=== PATIENT | female | born 1955 | race Caucasian/White ===

== ENCOUNTER 2017-07-16 15:35 | Emergency (ER) | payer OTHER, SELFPAY ==
[2017-07-16 15:36] VITALS: BP 125/76; PULSE 84; RESP 16; TEMP 36.4; O2SAT 100; BMI 31.7
--- NOTE | 2017-07-16 15:52 | EKG12_ITS ---
Test Reason : ABD PAIN Blood Pressure : / mmHG Vent. Rate : 062 BPM Atrial Rate : 062 BPM P-R Int : 160 ms QRS Dur : 092 ms QT Int : 418 ms P-R-T Axes : 050 022 049 degrees QTc Int : 424 ms Normal sinus rhythm Normal ECG Confirmed by JEREMY VOGT MD ([id number]), video effects editor ADRIAN MACIEL ([id number] on 07/18/2017 3:20:39 PM Referred By: ESTER Confirmed By:JEREMY VOGT MD
--- NOTE | 2017-07-16 15:54 | ED.VISSUMM ---
- ER Visit Summary Date of Service: 07/16/17 Chief Complaint: Abdominal pain History of Present Illness: The patient is a 61 F presenting with abdominal pain. Patient states that [facility] [employer] this afternoon. She began having pain in her abdomen. She has a history of gallstones diagnosed in December. She states the pain radiated to her chest. Denies shortness of breath. She had nausea with no vomiting. Denies diarrhea or constipation. Denies urinary complaints. She states while pulling up to the hospital she burped and her symptoms completely resolved. She has no PE/DVT risk factors. She has a history of GERD and hypertension. She is not a smoker. No other coronary disease risk factors. Physical Examination: Vitals are stable. Patient is afebrile. Alert no acute distress. HEENT exam is unremarkable. Neck is supple. Lungs are clear and equal bilaterally. Heart is regular rate and rhythm. Abdomen is soft mild right upper quadrant tenderness with no rebound or guarding. Extremities are unremarkable. Skin is warm and dry. No focal neurologic deficit. Remainder of exam is unremarkable. Emergency Department Course and Treatment: EKG is normal sinus rhythm rate of 62 with no acute ischemic changes. CBC, chemistries unremarkable other than creatinine 1.09. Alk phos 163, AST 63, lipase 261. Troponin is negative. Repeat troponin is negative. Chest x-ray shows no acute process. Ultrasound gallbladder shows cholelithiasis. CTA chest and abdomen was obtained. This shows no evidence of dissection. Suboptimal for PE. Patient has no PE/DVT risk factors. She is not tachycardic or hypoxic. CT abdomen also shows constipation, gastritis, right pulmonary nodule. On reevaluation, her symptoms have improved. She is advised to importance of follow-up for right pulmonary nodule. She is given a prescription for Pepcid. She is advised to follow-up with her primary care physician. Advised return to ED if worsening complaints. Disposition: Discharge home Impression: Abdominal pain This note was generated with [employer] dictation software. It may contain incorrect words, spelling, and punctuation that were not noted in review of the chart prior to signing ED Disposition - Plan for ED Patient: Chief Complaint: Abd Pain Referrals: Dorian Valdivia MD [Primary Care Provider] -
[2017-07-16 16:10] LABS: Absolute Lymphocyte Count 3.15 X10^3/ul (0.83-4.51); Absolute Neutrophil Count 4.5 X10^3/uL (2.0-7.7); Basophil# 0.03 X10^3/uL; Basophil% 0.4 % (0-1); Eosinophil# 0.23 X10^3/uL; Eosinophils% 2.7 % (0-5); Hematocrit 39.2 % (37-47); Hemoglobin 12.4 g/dl (12.0-15.0); Lymphocyte # 3.15 X10^3/ul (4.0); Lymphocyte % 37.2 % (19-41); Mean Corp Hgb Conc 31.6 g/gl (32-36); Mean Corpuscular Hgb 29.9 pg (27.0-32.0); Mean Corpuscular Volume 94.5 fL (81-99); Mean Platelet Vol. 10.8 fl (6.2-12.0); Monocyte# 0.58 X10^3/uL; Monocyte% 6.8 % (0-10); Neutrophil # 4.47 X10^3/uL (2.7-7.7); Neutrophil % 52.8 % (47-70); Platelet Count 310 K/mm3 (150-450); RBC Distribution Width SD 44.9 fl (35.1-43.9); Red Blood Count 4.15 M/mm3 (4.2-5.4); White Blood Count 8.5 K/mm3 (4.4-11.0)
--- NOTE | 2017-07-16 16:10 | RAD_ITS ---
STUDY: X-RAY CHEST REASON FOR EXAM: Female, 61 years old. CHEST AND ABDOMEN PAIN , HX OF GALLSTONES TECHNIQUE: Single frontal view of the chest. COMPARISON: October 02, 2016 FINDINGS: Chronic appearing increased interstitial lung markings. There is an elevated left hemidiaphragm. There is no demonstrated pleural abnormality. Enlarged heart size. Normal mediastinum and lizette. Normal visualized pulmonary arteries. There is atherosclerotic calcification of the aortic arch with tortuosity. There are diffuse degenerative changes of the visualized thoracic spine. There is degenerative osteoarthritis of the bilateral shoulders. There is no demonstrated abnormality of the visualized soft tissue structures of the upper abdomen. RAD/Chest 1 View (Portable) IMPRESSION: There are no acute findings. Electronically Signed: Hero Markham MD at 16:37 EDT , Service support ,
[2017-07-16 16:15] LABS: POSITIVE COUNT NO; POSITIVE DIFFERENTIAL NO; POSITIVE MORPHOLOGY NO
[2017-07-16 16:17] LABS: AST(SGOT) 63 U/L (15-37); Alanine Aminotransfer ALT/SGPT 45 U/L (13-56); Albumin, Serum 3.6 g/dL (3.2-5.0); Alkaline Phosphatase 163 U/L (45-117); Anion Gap 11 (5-15); BUN 23 mg/dL (7-18); BUN/Creat Ratio 21.1 RATIO (10-20); Bilirubin, Direct 0.15 mg/dL (0.00-0.30); Calcium,Total 8.2 mg/dL (8.5-10.1); Chloride 104 mmol/L (98-107); Creatinine, Serum 1.09 mg/dL (0.55-1.02); EST Glomerular Filtration Rate 54 mL/min (>60); Est Glom Filt Rate - Afr Amer 65 mL/min (>60); Estimated Creatinine Clearance 48.77 ml/min; Globulin 3.9 g/dL (2.2-4.2); Glucose 132 mg/dL (74-106); Lipase 261 U/L (73-393); Protein, Total 7.5 g/dL (6.4-8.2); Sodium Level 140 mmol/L (136-145)
--- NOTE | 2017-07-16 16:34 | US_ITS ---
STUDY: ABDOMINAL ULTRASOUND - RIGHT UPPER QUADRANT REASON FOR VISIT: Female, 61 years old. Pain TECHNIQUE: Ultrasound evaluation of the right upper quadrant was performed with real-time and static pierce-scale imaging. TECHNICAL QUALITY: Adequate. COMPARISON: None. FINDINGS: Liver: The liver measures 15.1 cm. There is increased echogenicity consistent with fatty infiltration. The bile ducts are within normal limits. There is hepatic color flow. The direction of portal flow is hepatopetal. There is no demonstrated mass lesion. Gallbladder: Normal distended gallbladder. The gallbladder wall measures 2.6 mm. There is a negative sonographic Addison's sign. There is no pericholecystic fluid. There are multiple echogenic structures within the gallbladder, consistent with multiple gallstones. Common Bile Duct (C.B.D.): The common bile duct measures 6 mm. Pancreas: There is nonvisualization of the pancreas. Right Kidney: Normal size of the right kidney. The right kidney measures 10.2 x 4.7 x 4.3 cm. Normal renal cortex. The right cortex measures 1.3 cm. Cysts of the right kidney. This measures 9 x 9 mm. There is a calcification 10 x 8 mm. There is no right hydronephrosis. US/Gallbladder IMPRESSION: Fatty liver. Cholelithiasis. Nonvisualization of the pancreas. Right renal cyst. Nonobstructive right renal stone Electronically Signed: Hero Markham MD at 17:51 EDT , Service support ,
[2017-07-16] MEDS: Ondansetron 4 MG/2 ML Vial IV (16:59)
[2017-07-16 17:54] VITALS: BP 123/76; PULSE 66; RESP 16; O2SAT 100
--- NOTE | 2017-07-16 18:35 | CT_ITS ---
STUDY: CTA OF THE ABDOMINAL AORTA AND BILATERAL LOWER EXTREMITIES REASON FOR EXAM: Female, 61 years old. CHEST PAIN. GERD. RADIATION DOSAGE (If Supplied By Facility): CTDIvol = ( 13.16 ) mGy, DLP = ( 905.82 ) mGycm TECHNIQUE: Axial CT angiography multi-detector data acquisition was obtained following intravenous administration of 100ML ml of Isovue 370 contrast. Axial images and MIP images were reconstructed from the axial data set. Post-processing of the angiographic images was performed, with multiplanar reformation and 3D reconstruction. Individualized dose optimization techniques were used for this CT. TECHNICAL QUALITY: Good COMPARISON: None. Descriptors of Narrowing: None (0%) Mild (< 50%) Moderate (50-70%) Severe (70-90%) Subtotal/Total Occlusion (90-100%) Non-Evaluable (technically non-diagnostic FINDINGS: Gallbladder, liver, spleen, and adrenal glands are within normal limits. Focal wall thickening of the antrum of stomach. This can suggest a gastritis. There is no hydronephrosis. Stool throughout the colon. The appendix is not visualized. There are no secondary signs to suggest appendicitis. Abdominal aorta: There are calcifications of the abdominal aorta. This is consistent for atherosclerotic disease. There is no abdominal aortic aneurysm. Celiac and superior mesenteric arteries: No demonstrated narrowing. Inferior mesenteric artery: No demonstrated narrowing. Right renal artery(arteries): No demonstrated narrowing. Left renal artery(arteries): No demonstrated narrowing. Right common iliac artery: No demonstrated narrowing. Left common iliac artery: No demonstrated narrowing. CT/CTA Abdomen W/WO Contrast IMPRESSION: There are calcifications of the abdominal aorta. This is consistent for atherosclerotic disease. There is no abdominal aortic aneurysm. Constipation. Gastritis. Celiac axis, SMA, renal arteries, and NATHALIA are patent. Electronically Signed: Hero Markham MD at 20:03 EDT , Service support ,
--- NOTE | 2017-07-16 18:35 | CT_ITS ---
STUDY: CTA CHEST REASON FOR EXAM: Female, 61 years old. CHEST PAIN. GERD. RADIATION DOSAGE (If Supplied By Facility): CTDIvol = ( 13.16 ) mGy, DLP = ( 905.82 ) mGycm TECHNIQUE: The examination was performed with the intravenous administration of 100ML ml of Isovue 370 contrast material. Post-processing of the angiographic images was performed, with multiplanar reformation and 3D reconstruction. Individualized dose optimization techniques were used for this CT. COMPARISON: None. FINDINGS: There is limited enhancement of the main pulmonary artery and right and left pulmonary arteries. There is limited enhancement of the bilateral peripheral pulmonary arteries. There is atherosclerotic tortuosity of the aortic arch and descending thoracic aorta. There is no demonstrated aortic dissection. Normal heart and pericardium. Normal mediastinum. Normal hilar regions. Normal visualized trachea and bronchi. There is a 7.6 mm right lower lobe subpleural nodule. Normal pulmonary parenchyma. Normal pleura. Normal chest wall structures. There are degenerative changes of thoracic spine. Normal visualized upper abdomen. CT/CTA Chest W/WO Contrast IMPRESSION: Suboptimal opacification of the pulmonary arteries. Detection of pulmonary embolic cannot be obtained. There are right pulmonary nodule/s. This can be further evaluated with CT of the chest. Follow up at routine intervals is recommended for a total of 2 years if clinically indicated. Fleischner Society recommendations. Less than 4mm. No follow up need unless pt is high risk. 4-6mm nodules: Follow up at 12 months. If no change in size no further follow up. For high risk patients, 4-6mm nodule requires 6-12mo follow up then 18-24mo follow up if no change. For lung nodules 6 to 8 mm in size, if the patient is considered high risk for lung cancer, follow-up CT in 3 to 6 months is recommended, then at 9-12 mo, and then at 24mo if no change. If the patient is considered low risk for lung cancer, follow-up CT in 6 to 12 months and then 18-24mo if no change is recommended. For >8mm nodules, low and high risk categories, Follow up CT at 3, 9, and 24months. Dynamic CT with IV or PET or Biopsy. Electronically Signed: Hero Markham MD at 20:01 EDT , Service support ,
[2017-07-16 19:45] VITALS: BP 139/87; PULSE 67; RESP 18; O2SAT 100
--- NOTE | 2017-07-16 20:55 | ED.DEP ---
ED Disposition - Plan for ED Patient: Chief Complaint: Abd Pain Instructions: ED Abdominal Pain Unkn Cause Prescriptions: Famotidine [Pepcid] 20 mg PO BID #28 tablet Referrals: Dorian Valdivia MD [Primary Care Provider] - Rogelio Pederson MD [STAFF PHYSICIAN] -
[2017-07-16 21:11] VITALS: BP 118/77; PULSE 63; RESP 16; O2SAT 96
== END 2017-07-16 21:12 | disposition home or self-care (01) ==
PROVIDERS: Emergency Provider Emergency Medicine; Family Provider Internal Medicine; PCP Internal Medicine
DX: R10.9 Unspecified abdominal pain (principal); I10 Essential (primary) hypertension; K21.9 Gastro-esophageal reflux disease without esophagitis; K80.20 Calculus of gallbladder without cholecystitis without obstruction; K59.00 Constipation, unspecified; K29.70 Gastritis, unspecified, without bleeding; R91.1 Solitary pulmonary nodule
CPT/HCPCS: 71045; 71275; 74175; 76705; 80048; 80076; 83690; 84484; 85025; 93005; 99283; J7030; J7040; Q9967; A4216; J2405

== ENCOUNTER 2017-12-13 22:24 | Emergency (ER) | payer OTHER, SELFPAY ==
[2017-12-13 22:25] VITALS: BP 132/75; PULSE 84; RESP 22; TEMP 36.7; O2SAT 100; BMI 34.8
[2017-12-13 22:56] VITALS: BP 143/90; PULSE 71; RESP 16; O2SAT 100
--- NOTE | 2017-12-13 23:06 | ED.DCSUM_ITS ---
- ER Visit Summary Date of Service: 12/13/17 Chief Complaint: [] Right upper abdominal pain right lower rib pain History of Present Illness: The patient is a 62 F with the above all day today. It has been acting on and off actually over the last 4 days. Worse tonight. The aching sensation in the right upper quadrant. Relieved by nothing. She also has some substernal chest tightness that lasted 15 minutes after dinner around 5 PM. That went away. She has a history of gallstones diagnosed via ultrasound earlier this year. No home treatment. She does have high blood pressure and high cholesterol. No other cardiac disease. No PE risk factors. She has not seen a surgeon. Physical Examination: [] Vital signs reviewed General: Well-nourished well-developed Head: Normocephalic atraumatic Eyes: Pupils equal round and reactive to light extraocular movements intact ENT: TMs clear no hemotympanum no trauma Neck: Nontender full range of motion Cardiovascular: Regular rate rhythm no murmurs normal S1-S2 Respiratory: No distress clear to auscultation bilaterally chest nontender Abdomen: Soft tender right upper quadrant without guarding Addison sign or rebound nondistended normal bowel sounds no masses Back: Nontender no CVA tenderness Extremities: Nontender active range of motion ?4 extremities no trauma Skin: Normal color no trauma Neuro alert oriented cranial nerves II through XII intact normal strength sensation reflexes Test Results: [] Emergency Department Course and Treatment: [] She given dose of oral aspirin. Given IV morphine. EKG shows sinus rhythm at a rate of 68 with T-wave inversion V2 only. Chest x-ray and lab work obtained. Chest x-ray showed nothing acute. Lab work shows CBC normal. Chemistries normal except glucose 143. Liver function tests showed ALT AST and alk phos slightly elevated from prior labs. ALT is 89, AST 125, alk phos 191. Bilirubin normal. Lipase negative. Troponin normal. On reevaluation the patient feels asymptomatic resting comfortably. I think this is biliary colic. I do not think she needs a repeat ultrasound as I do not think she has cholecystitis. She has no fever or white count. Her bilirubin is normal. I feel she can follow-up with surgery as an outpatient will be given a short course of Percocet and Zofran. She will return if she worsens. I do not feel she is having cardiac chest pain. I discussed admission with the patient at this time we decided to hold off and she is feeling better and unlikely to have a cholecystitis Treatment Plan: [] Disposition: [] Impression: [] Biliary colic This note was generated with [employer] dictation software. It may contain incorrect words, spelling, and punctuation that were not noted in review of the chart prior to signing ED Disposition - Plan for ED Patient: Disposition: Home or Assisted Living Chief Complaint: Chest Pain Instructions: ED Abdominal Pain Gallstone Poss Prescriptions: Oxycodone HCl/Acetaminophen [Percocet 5/325] 1 tab PO Q6H PRN PRN 3 Days #12 tab PRN Reason: Pain Ondansetron [Zofran Odt] 4 mg PO Q8H PRN PRN #10 tab PRN Reason: Nausea Referrals: Rogelio Pederson MD [STAFF PHYSICIAN] - Dorian Valdivia MD [Primary Care Provider] -
[2017-12-13] MEDS: Aspirin 81 MG TAB.CHEW 324 MG PO (23:13)
[2017-12-13] MEDS: Morphine 4 MG/ML Syringe IV (23:14)
[2017-12-13 23:33] LABS: AST(SGOT) 125 U/L (15-37); Alanine Aminotransfer ALT/SGPT 89 U/L (13-56); Albumin, Serum 3.5 g/dL (3.2-5.0); Alkaline Phosphatase 191 U/L (45-117); Bilirubin, Direct 0.14 mg/dL (0.00-0.30); Globulin 3.7 g/dL (2.2-4.2); Protein, Total 7.2 g/dL (6.4-8.2)
[2017-12-13 23:40] LABS: Anion Gap 12 (5-15); BUN 23 mg/dL (7-18); BUN/Creat Ratio 24.3 RATIO (10-20); Calcium,Total 8.6 mg/dL (8.5-10.1); Chloride 107 mmol/L (98-107); Creatinine, Serum 0.94 mg/dL (0.55-1.02); EST Glomerular Filtration Rate 64 mL/min (>60); Est Glom Filt Rate - Afr Amer 77 mL/min (>60); Estimated Creatinine Clearance 69.36 ml/min; Glucose 143 mg/dL (74-106); Lipase 232 U/L (73-393); Sodium Level 143 mmol/L (136-145)
[2017-12-13 23:43] LABS: Absolute Lymphocyte Count 2.37 X10^3/ul (0.83-4.51); Absolute Neutrophil Count 4.4 X10^3/uL (2.0-7.7); Basophil# 0.02 X10^3/uL; Basophil% 0.3 % (0-1); Eosinophils% 1.4 % (0-5); Hematocrit 38.3 % (37-47); Hemoglobin 12.2 g/dl (12.0-15.0); Lymphocyte # 2.37 X10^3/ul (4.0); Lymphocyte % 32.1 % (19-41); Mean Corp Hgb Conc 31.9 g/gl (32-36); Mean Corpuscular Hgb 29.6 pg (27.0-32.0); Mean Platelet Vol. 10.6 fl (6.2-12.0); Monocyte# 0.44 X10^3/uL; Neutrophil # 4.44 X10^3/uL (2.7-7.7); Neutrophil % 60.1 % (47-70); Platelet Count 301 K/mm3 (150-450); RBC Distribution Width CV 12.7 % (11.6-14.6); Red Blood Count 4.12 M/mm3 (4.2-5.4); White Blood Count 7.4 K/mm3 (4.4-11.0)
[2017-12-13 23:44] LABS: POSITIVE COUNT NO; POSITIVE DIFFERENTIAL NO; POSITIVE MORPHOLOGY NO
[2017-12-13 23:49] VITALS: BP 129/82; PULSE 60; RESP 13; O2SAT 100
--- NOTE | 2017-12-13 23:49 | ED.DEP ---
ED Disposition - Plan for ED Patient: Disposition: Home or Assisted Living Chief Complaint: Chest Pain Instructions: ED Abdominal Pain Gallstone Poss Prescriptions: Oxycodone HCl/Acetaminophen [Percocet 5/325] 1 tab PO Q6H PRN PRN 3 Days #12 tab PRN Reason: Pain Ondansetron [Zofran Odt] 4 mg PO Q8H PRN PRN #10 tab PRN Reason: Nausea Referrals: Dorian Valdivia MD [Primary Care Provider] - Rogelio Pederson MD [STAFF PHYSICIAN] -
[2017-12-14 00:08] VITALS: BP 130/84; PULSE 82; RESP 15; O2SAT 99
== END 2017-12-14 00:17 | disposition home or self-care (01) ==
PROVIDERS: Emergency Provider Emergency Medicine; Family Provider Internal Medicine; PCP Internal Medicine
DX: K80.50 Calculus of bile duct without cholangitis or cholecystitis without obstruction (principal); I10 Essential (primary) hypertension; E78.00 Pure hypercholesterolemia, unspecified; Z79.899 Other long term (current) drug therapy
CPT/HCPCS: 71046; 80048; 80076; 83690; 84484; 85025; 93005; 96374; 99284; A4216

== ENCOUNTER 2017-12-26 14:09 | Emergency (ER) | payer OTHER, SELFPAY ==
[2017-12-26 14:11] VITALS: BP 145/88; PULSE 75; PULSE 78; RESP 11; RESP 14; TEMP 36.4; O2SAT 98; O2SAT 99; BMI 21.5
[2017-12-26 15:34] LABS: Absolute Lymphocyte Count 2.01 X10^3/ul (0.83-4.51); Basophil# 0.02 X10^3/uL; Basophil% 0.3 % (0-1); Eosinophil# 0.15 X10^3/uL; Eosinophils% 1.9 % (0-5); Hematocrit 38.9 % (37-47); Hemoglobin 12.2 g/dl (12.0-15.0); Lymphocyte # 2.01 X10^3/ul (4.0); Lymphocyte % 25.9 % (19-41); Mean Corp Hgb Conc 31.4 g/gl (32-36); Mean Corpuscular Hgb 29.5 pg (27.0-32.0); Mean Corpuscular Volume 94.2 fL (81-99); Mean Platelet Vol. 10.6 fl (6.2-12.0); Monocyte# 0.57 X10^3/uL; Monocyte% 7.3 % (0-10); Neutrophil % 64.5 % (47-70); Platelet Count 322 K/mm3 (150-450); RBC Distribution Width CV 12.8 % (11.6-14.6); Red Blood Count 4.13 M/mm3 (4.2-5.4); White Blood Count 7.8 K/mm3 (4.4-11.0)
[2017-12-26 15:38] LABS: POSITIVE COUNT NO; POSITIVE DIFFERENTIAL NO; POSITIVE MORPHOLOGY NO
[2017-12-26 15:57] LABS: ALB/GLOB Ratio 0.9 RATIO (0.9-2.4); AST(SGOT) 79 U/L (15-37); Alanine Aminotransfer ALT/SGPT 72 U/L (13-56); Albumin, Serum 3.7 g/dL (3.2-5.0); Alkaline Phosphatase 180 U/L (45-117); Anion Gap 10 (5-15); BUN 22 mg/dL (7-18); BUN/Creat Ratio 21.4 RATIO (10-20); Calcium,Total 8.8 mg/dL (8.5-10.1); Chloride 107 mmol/L (98-107); Creatinine, Serum 1.03 mg/dL (0.55-1.02); EST Glomerular Filtration Rate 58 mL/min (>60); Est Glom Filt Rate - Afr Amer 70 mL/min (>60); Estimated Creatinine Clearance 60.83 ml/min; Globulin 4.1 g/dL (2.2-4.2); Glucose 113 mg/dL (74-106); Lipase 210 U/L (73-393); Potassium 3.6 mmol/L (3.5-5.1); Protein, Total 7.8 g/dL (6.4-8.2); Sodium Level 142 mmol/L (136-145)
--- NOTE | 2017-12-26 16:42 | ED.VISSUMM ---
- ER Visit Summary Date of Service: 12/26/17 Chief Complaint: Chest pain History of Present Illness: The patient is a 62 F with chest pain and right upper quadrant pain for several weeks. Symptoms are worse with eating. Nothing seems to make them better. No other associated symptoms like shortness of breath, nausea, vomiting, fevers, sweats, or lightheadedness. No history of abdominal surgery. She does have a history of hypertension and hyperlipidemia. Non-smoker. Physical Examination: Afebrile and vital signs unremarkable. Patient is sitting upright and appears calm and comfortable. No acute distress. Heart regular rate and rhythm. Lungs clear. Abdomen tender in the right upper quadrant. No guarding or rebound. Skin appears normal in color without jaundice or pallor. Calf soft and supple. Test Results: EKG shows sinus rhythm at a rate of 66. CBC normal. Glucose 113, BUN 22, creatinine 1.03. Lipase normal. Alkaline phosphatase 180, ALT 72, and AST 79. Troponin normal. Patient refused chest x-ray. Right upper quadrant ultrasound is pending. Emergency Department Course and Treatment: Patient treated with morphine while awaiting results. CBC unremarkable. Glucose 113, BUN 22, creatinine 1.03, alkaline phosphatase 180, ALT 72, AST 79. Lipase normal. Troponin normal. EKG showed sinus rhythm at a rate of 66. Patient refused chest x-ray. Ultrasound showed hepatomegaly, fatty liver, gallstones. Patient was reevaluated. She would like to go home. I advised her she does not have evidence of cholecystitis, sepsis, or intractable symptoms. I believe this is reasonable. I advised the patient that things could change. She should return right away for new or worsening symptoms. She has follow-up with her surgeon, Dr. Pederson 2 days and would like to pursue outpatient treatment. Treatment Plan: As above Disposition: Discharged Impression: 1. Biliary colic This note was generated with [employer] dictation software. It may contain incorrect words, spelling, and punctuation that were not noted in review of the chart prior to signing ED Disposition - Plan for ED Patient: Chief Complaint: Chest Other Referrals: Dorian Valdivia MD [Primary Care Provider] -
[2017-12-26 16:46] VITALS: BP 130/88; PULSE 56; RESP 13; O2SAT 96
[2017-12-26] MEDS: Morphine 4 MG/ML Syringe IV (16:46)
--- NOTE | 2017-12-26 17:23 | ED.DEP ---
ED Disposition - Plan for ED Patient: Chief Complaint: Chest Other Instructions: What are Gallstones? Referrals: Rogelio Pederson MD [STAFF PHYSICIAN] -
[2017-12-26 17:41] VITALS: BP 121/77; PULSE 55; RESP 16; O2SAT 97
== END 2017-12-26 17:43 | disposition home or self-care (01) ==
PROVIDERS: Emergency Provider Emergency Medicine; Family Provider Internal Medicine; PCP Internal Medicine
DX: K80.50 Calculus of bile duct without cholangitis or cholecystitis without obstruction (principal); K76.0 Fatty (change of) liver, not elsewhere classified; I10 Essential (primary) hypertension; E78.00 Pure hypercholesterolemia, unspecified
CPT/HCPCS: 76705; 80053; 83690; 84484; 85025; 93005; 96374; 99285; A4216

== ENCOUNTER 2018-08-24 11:35 | Emergency (ER) | payer OTHER, SELFPAY ==
[2018-08-24 11:36] VITALS: BP 163/93; PULSE 69; RESP 15; TEMP 36.6; O2SAT 100; BMI 27.5
--- NOTE | 2018-08-24 11:54 | ED.VIS.GEN ---
History of Present Illness Chief Complaint: Dizziness Detail of Chief Complaint: Room spinning and ear discomfort Informant: Patient, Significant Other Onset: Today Context: Sudden Onset Timing: Intermittent Quality: Head spinning Location: At work Current Severity: - - Presently no symptoms Maximum Severity: Severe Worsened by: Head movement Relieved by: Remaining still and closing eyes Associated Symptoms: Nausea and ear discomfort Narrative: Patient is an elderly woman who was sent from urgent care for constellation of symptoms. Patient reports abrupt onset of spinning at 0700. She denies double vision, blurred vision, change in vision or loss of vision. She denies paresthesia, anesthesia motor weakness. She denies difficulty walking. She has history of chronic left tympanic rupture. She denies fever, chills night sweats. She denies headache. Denies cardiac or respiratory symptoms. believes this is an ear problem. Prior similar symptoms: No Recent Illness/Hospitalization: No Past Medical History - Allergies and Home Meds Allergies/Adverse Reactions: Allergies No Known Allergies Allergy (Verified 12/26/17 14:10) Primary Care Physician: Dorian Valdivia MD [Primary Care Provider] - Prior records reviewed: No Surgical History: noncontributory Lives: Spouse/ Significant Other Smoking Status: Former smoker Alcohol: None Drugs: None Review of Systems General: Denies: Chills, Fever, Sweats Eyes: Denies: Visual changes - bilaterally, Blurred Vision - bilaterally, Diplopia ENT: Reports: Right ear pain, - - Patient complains of decreased hearing right ear. Denies: Bilateral ear pain, Left ear pain, Rhinorrhea, Sore throat Cardiovascular: Denies: Chest pain, Palpitations Respiratory: Denies: Dyspnea, Cough, Dyspnea on exertion Gastrointestinal: Denies: Abdominal pain, Nausea, Vomiting, Diarrhea, Melena, Hematochezia Genitourinary: Denies: Dysuria, Hematuria, Frequency Musculoskeletal: Denies: Myalgias, Arthralgias, Neck pain, Back pain, Extremity Pain Skin: Denies: Rash, Abscess, Wounds Neurological: Denies: Headache, Weakness, Numbness Allergy: Denies: Uticaria, Swelling of the mouth Physical Exam Vital Signs/Narrative: Vital Signs Temp Pulse Resp BP Pulse Ox 08/24/18 11:36 97.8 F 69 15 163/93 H 100 Inital Vital Signs reviewed: Yes General: Well nourished, Well developed, No Acute Distress Head: Normocephalic, Atraumatic Eyes: Perrl, EOMI. Negative for: Pale conjunctiva, Scleral icterus, - - There is no APD. There is no nystagmus. ENT: Moist mucous membranes, No rhinorrhea, - - There is a perforated eardrum on the left. There is a perforated eardrum on the right secondary to infection with purulent drainage noted.. Negative for: TM's clear Neck: Supple, Nontender, No lymphadenopathy, No JVD Cardiovascular: Regular rate, Regular rhythm, No murmurs, Normal S1, Normal S2 Respiratory: No distress, CTA bilaterally, Chest nontender Extremities: Nontender, No edema Skin: Normal color, No rash, No Trauma. Negative for: Cyanosis, Jaundice Neurological: Alert, Oriented x3, Cranial nerves II-XII grossly intact, Normal Strength, Normal Sensation, Normal DTR - RI 1+ symmetric., - - Your nose to finger performed adequately. Positive Lumberton-Hallpike maneuver. Psychological: Normal affect Diagnostic/Tx/Re-eval - Medical Decision Making With perforated right TM with drainage will treat for otitis media. Since vertigo was positional and most likely related to ruptured eardrum will treat with Valium. She will be discharged home with prescription for Augmentin and Valium since normal exam is normal and there is an etiology for her dizziness imaging was not obtained or indicated and laboratory testing is not obtained or indicated. ED Disposition - Plan for ED Patient: Disposition: Home or Assisted Living Diagnosis: Acute otitis media with perforated tympanic membrane, Perforated left tympanic membrane on examination, Vertigo Instructions: ED Rupture Eardrum Infec Prescriptions: Amox/Clavulanate Tablet [Augmentin Tablet] 875 mg PO Q12H #20 tab Diazepam [Valium] 2 mg PO TID #10 tab Referrals: Dorian Valdivia MD [Primary Care Provider] - 1 Week if not improving
--- NOTE | 2018-08-24 11:58 | ED.DCSUM_ITS ---
History of Present Illness Chief Complaint: Dizziness Detail of Chief Complaint: Room spinning and ear discomfort Informant: Patient, Significant Other Onset: Today Context: Sudden Onset Timing: Intermittent Quality: Head spinning Location: At work Current Severity: - - Presently no symptoms Maximum Severity: Severe Worsened by: Head movement Relieved by: Remaining still and closing eyes Associated Symptoms: Nausea and ear discomfort Narrative: Patient is an elderly woman who was sent from urgent care for constellation of symptoms. Patient reports abrupt onset of spinning at 0700. She denies double vision, blurred vision, change in vision or loss of vision. She denies paresthesia, anesthesia motor weakness. She denies difficulty walking. She has history of chronic left tympanic rupture. She denies fever, chills night sweats. She denies headache. Denies cardiac or respiratory symptoms. believes this is an ear problem. Prior similar symptoms: No Recent Illness/Hospitalization: No Past Medical History - Allergies and Home Meds Allergies/Adverse Reactions: Allergies No Known Allergies Allergy (Verified 12/26/17 14:10) Primary Care Physician: Dorian Valdivia MD [Primary Care Provider] - Prior records reviewed: No Surgical History: noncontributory Lives: Spouse/ Significant Other Smoking Status: Former smoker Alcohol: None Drugs: None Review of Systems General: Denies: Chills, Fever, Sweats Eyes: Denies: Visual changes - bilaterally, Blurred Vision - bilaterally, Diplopia ENT: Reports: Right ear pain, - - Patient complains of decreased hearing right ear. Denies: Bilateral ear pain, Left ear pain, Rhinorrhea, Sore throat Cardiovascular: Denies: Chest pain, Palpitations Respiratory: Denies: Dyspnea, Cough, Dyspnea on exertion Gastrointestinal: Denies: Abdominal pain, Nausea, Vomiting, Diarrhea, Melena, Hematochezia Genitourinary: Denies: Dysuria, Hematuria, Frequency Musculoskeletal: Denies: Myalgias, Arthralgias, Neck pain, Back pain, Extremity Pain Skin: Denies: Rash, Abscess, Wounds Neurological: Denies: Headache, Weakness, Numbness Allergy: Denies: Uticaria, Swelling of the mouth Physical Exam Vital Signs/Narrative: Vital Signs Temp Pulse Resp BP Pulse Ox 08/24/18 11:36 97.8 F 69 15 163/93 H 100 Inital Vital Signs reviewed: Yes General: Well nourished, Well developed, No Acute Distress Head: Normocephalic, Atraumatic Eyes: Perrl, EOMI. Negative for: Pale conjunctiva, Scleral icterus, - - There is no APD. There is no nystagmus. ENT: Moist mucous membranes, No rhinorrhea, - - There is a perforated eardrum on the left. There is a perforated eardrum on the right secondary to infection with purulent drainage noted.. Negative for: TM's clear Neck: Supple, Nontender, No lymphadenopathy, No JVD Cardiovascular: Regular rate, Regular rhythm, No murmurs, Normal S1, Normal S2 Respiratory: No distress, CTA bilaterally, Chest nontender Extremities: Nontender, No edema Skin: Normal color, No rash, No Trauma. Negative for: Cyanosis, Jaundice Neurological: Alert, Oriented x3, Cranial nerves II-XII grossly intact, Normal Strength, Normal Sensation, Normal DTR - MA 1+ symmetric., - - Your nose to finger performed adequately. Positive Tyler-Hallpike maneuver. Psychological: Normal affect Diagnostic/Tx/Re-eval - Medical Decision Making With perforated right TM with drainage will treat for otitis media. Since vertigo was positional and most likely related to ruptured eardrum will treat with Valium. She will be discharged home with prescription for Augmentin and Valium since normal exam is normal and there is an etiology for her dizziness i maging was not obtained or indicated and laboratory testing is not obtained or indicated. ED Disposition - Plan for ED Patient: Disposition: Home or Assisted Living Diagnosis: Acute otitis media with perforated tympanic membrane, Perforated left tympanic membrane on examination, Vertigo Instructions: ED Rupture Eardrum Infec Prescriptions: Amox/Clavulanate Tablet [Augmentin Tablet] 875 mg PO Q12H #20 tab Diazepam [Valium] 2 mg PO TID #10 tab Referrals: Dorian Valdivia MD [Primary Care Provider] - 1 Week if not improving
[2018-08-24] MEDS: Amox/Clavulanate 875 MG Tablet PO (12:24)
[2018-08-24] MEDS: diazePAM 2 MG Tablet PO (12:24)
[2018-08-24 12:25] VITALS: BP 119/70; PULSE 58; RESP 18; O2SAT 99
== END 2018-08-24 12:28 | disposition home or self-care (01) ==
PROVIDERS: Emergency Provider Emergency Medicine; Family Provider Internal Medicine; PCP Internal Medicine
DX: R42 Dizziness and giddiness (principal); H66.019 Acute suppurative otitis media with spontaneous rupture of ear drum, unspecified ear; Z87.891 Personal history of nicotine dependence
CPT/HCPCS: 99283; A4216

== ENCOUNTER → 2019-06-20 | Outpatient (CLI) | payer OTHER, SELFPAY ==
[2018-12-02 12:57] VITALS: BMI 27.5
== END | disposition home or self-care (01) ==
LOC: LABSPEC 17:02
PROVIDERS: PCP Internal Medicine; Referring Provider Otolaryngology Otolaryngology/Facial Plastic Surgery; Visit Provider Otolaryngology Otolaryngology/Facial Plastic Surgery
DX: H92.10 Otorrhea, unspecified ear (principal)
CPT/HCPCS: 87070; 87075; 87077; 87186; 87205

== ENCOUNTER 2020-02-12 08:24 | Emergency (ER) | payer OTHER, SELFPAY ==
[2018-12-02 12:57] VITALS: BMI 27.5
[2020-02-12 08:25] VITALS: BP 133/78; PULSE 79; RESP 16; TEMP 36.6; O2SAT 100; BMI 31.4
--- NOTE | 2020-02-12 08:43 | EKG12_ITS ---
Test Reason : BACKPAIN Blood Pressure : / mmHG Vent. Rate : 064 BPM Atrial Rate : 064 BPM P-R Int : 164 ms QRS Dur : 094 ms QT Int : 394 ms P-R-T Axes : 043 000 055 degrees QTc Int : 406 ms Normal sinus rhythm Normal ECG Confirmed by ANA PAULA GAFFNEY, MILO ([id number]), fashion editor VICKY MARTINEZ ([id number]) on 02/17/2020 8:21:31 A M Referred By: SHERRY Confirmed By:JESSICA GOSS MD
--- NOTE | 2020-02-12 08:44 | ED.VIS.CHEST ---
History of Present Illness Chief Complaint: Back Informant: Patient Onset: Days - 3 Activity at onset: Unknown Timing: Intermittent Quality: Aching Location: - - low back at times, upper mid-back other times; no chest pains Current Severity: Gone Maximum Severity: Moderate Worsened By: Movement of Torso. Not Worsened By: Coughing Relieved By: Nothing - nothing in particular Associated Symptoms: Diaphoresis - once w/ pain, not w/ palpitations, Lightheadedness - once w/ pain, not palpitations, Palpitations - beating hard, fast for about an hour or less. Negative for: Nausea, Vomiting, Dyspnea Narrative: Patient presenting with intermittent discomfort in her upper back. Not associated with the back discomfort have been 2 episodes of her heart beating hard and fast. Right now she has a little discomfort in her right jaw but nowhere else. When she had the discomfort in her upper back, there was no dyspnea, jaw pain, arm pain. States she has a history of reflux too. She takes blood pressure medication. No known history of heart disease. No recent cough, fevers, chills, headache, myalgias. Prior Similar Symptoms: No Recent Illness/Hospitalization: No CVD Risk Factors: Hypertension. Negative for: Diabetes, Hypercholesterolemia, Family History 1' </=55, Smoking PE Risk Factors: Negative for: Recent Travel/Surgery, Recenet Immobilization, Prior DVT or PE, Cancer, OCP + Smoking + >/=35 - Past Medical History (1) HTN (hypertension) Status: Chronic (2) GERD (gastroesophageal reflux disease) Status: Chronic (3) Hard of hearing Status: Chronic (4) Hiatal hernia Status: Chronic Past Medical History - Allergies and Home Meds Allergies/Adverse Reactions: Allergies No Known Allergies Allergy (Verified 02/12/20 08:25) Primary Care Physician: Dorian Valdivia MD [Primary Care Provider] - Smoking Status: Former smoker Review of Systems General: Reports: Sweats - Once unexplained. Denies: Chills, Fever Eyes: Denies: Visual changes - bilaterally, Diplopia ENT: Reports: - - Right jaw pain. Denies: Rhinorrhea, Sore throat Cardiovascular: Reports: Palpitations - Resolved now. Denies: Chest pain Respiratory: Denies: Dyspnea, Cough, Dyspnea on exertion Gastrointestinal: Denies: Abdominal pain, Nausea, Vomiting, Diarrhea, Melena, Hematochezia Genitourinary: Denies: Dysuria, Hematuria, Frequency Musculoskeletal: Reports: Back pain - Without radiation. Denies: Myalgias, Neck pain, Swelling, Extremity Pain Skin: Denies: Rash, Wounds Neurological: Denies: Headache, Weakness, Numbness Physical Exam Vital Signs/Narrative: Vital Signs Temp Pulse Resp BP Pulse Ox 02/12/20 08:25 97.8 F 79 16 133/78 H 100 Inital Vital Signs reviewed: Yes General: Well nourished, Well developed, No Acute Distress Head: Normocephalic, Atraumatic Eyes: Perrl, EOMI ENT: Moist mucous membranes, No rhinorrhea Neck: Supple, Nontender Cardiovascular: Regular rate, Regular rhythm, No murmurs. Negative for: Tachycardia Respiratory: No distress, CTA bilaterally, Chest nontender Abdomen: Soft, Nontender, Nondistended, Normal bowel sounds Back: Nontender, Normal Inspection Extremities: Nontender, No edema. Negative for: Calf Tenderness Skin: Normal color, No rash, No Trauma Neurological: Alert, Oriented x3, Cranial nerves II-XII grossly intact, Normal Strength, Normal Sensation Psychological: Normal affect, Normal Mood Diagnostic/Tx/Re-eval Impressions Chest X-Ray 02/12/20 09:03 IMPRESSION: No acute abnormality is seen. Electronically Signed: Kenn Darrell, at 9:16 EDT , Service support , 02/12/20 09:03 Chest 1 View (Portable) [RAD] Stat Laboratory Results 02/12/20 02/12/20 08:35 08:35 WBC 7.6 RBC 4.36 Hgb 13.4 Hct 41.2 MCV 94.5 MCH 30.7 MCHC 32.5 RDW Std Deviation 41.6 RDW Coeff of Steven 11.9 Plt Count 337 MPV 11.3 Immature Gran % (Auto) 0.300 Neut % (Auto) 56.4 Lymph % (Auto) 32.3 [place] % (Auto) 7.1 Eos % (Auto) 3.2 Baso % (Auto) 0.7 Absolute Neuts (auto) 4.3 Absolute Lymphs (auto) 2.45 Nucleated RBC % 0 Sodium 136 Potassium 4.2 Chloride 102 Carbon Dioxide 28.0 Anion Gap 6 BUN 35 H Creatinine 1.36 H Estim Creat Clear Calc 39.12 Est GFR (MDRD) Af Amer 50 L Est GFR (MDRD) Non-Af 42 L BUN/Creatinine Ratio 25.7 H Glucose 108 H Calcium 9.7 Troponin I < 0.015 - Rhythm Strip Rhythm Strip: Sinus Rhythm Rate: 65 Ectopy: None - EKG Initial EKG Interpretation: Sinus Rhythm, No Acute Injury Pattern - Normal EKG. Prior: Unchanged Treatment: Toradol IV - Medical Decision Making Patient had some mild left-sided back pain while in the emergency department, it was worse with moving around and reproducible with light palpation on her low back, inspection is normal there is no rash. Her work-up is negative with regards to her heart. Her x-ray of her chest is normal. I reassured her, I suspect these pains are either musculoskeletal, and/or it is possible that her hiatal hernia and reflux could be causing the episodic upper back discomfort. Her EKG is normal and she had no telemetry events while in the emergency department. I encouraged her to return for recurrent severe symptoms, otherwise to follow-up with her doctor as an outpatient. She was given Toradol prior to discharge and she is comfortable with that plan. ED Disposition - Plan for ED Patient: Disposition: Home or Assisted Living Diagnosis: Palpitations, Musculoskeletal back pain Instructions: ED Back Pain Acute or Chronic, ED Palpitations Referrals: Dorian Valdivia MD [Primary Care Provider] - 5-7 Days
[2020-02-12 08:50] VITALS: O2SAT 100
[2020-02-12 08:55] LABS: Absolute Lymphocyte Count 2.45 X10^3/uL (0.83-4.51); Absolute Neutrophil Count 4.3 X10^3/uL (2.0-7.7); Basophil# 0.05 X10^3/uL; Basophil% 0.7 % (0-1); Eosinophil# 0.24 X10^3/uL; Eosinophils% 3.2 % (0-5); Hematocrit 41.2 % (37-47); Hemoglobin 13.4 g/dL (12.0-15.0); Lymphocyte # 2.45 X10^3/ul (4.0); Lymphocyte % 32.3 % (19-41); Mean Corp Hgb Conc 32.5 g/dL (32-36); Mean Corpuscular Hgb 30.7 pg (27.0-32.0); Mean Corpuscular Volume 94.5 fL (81-99); Mean Platelet Vol. 11.3 fl (6.2-12.0); Monocyte# 0.54 X10^3/uL; Monocyte% 7.1 % (0-10); NRBC Flagged by Analyzer 0 % (0-5); Neutrophil # 4.29 X10^3/uL (2.7-7.7); Neutrophil % 56.4 % (47-70); Platelet Count 337 K/mm3 (150-450); RBC Distribution Width CV 11.9 % (11.6-14.6); RBC Distribution Width SD 41.6 fl (35.1-43.9); Red Blood Count 4.36 M/mm3 (4.2-5.4); White Blood Count 7.6 K/mm3 (4.4-11.0)
[2020-02-12] MEDS: Aspirin 81 MG TAB.CHEW 324 MG PO (08:55)
[2020-02-12 08:59] VITALS: BP 138/92; PULSE 61; RESP 17; O2SAT 100
--- NOTE | 2020-02-12 09:03 | RAD_ITS ---
STUDY: X-RAY CHEST REASON FOR EXAM: Female, 64 years old. Back and jaw pain, palpitations TECHNIQUE: Single AP portable view of the chest. COMPARISON: Comparison is made with prior examination dated 12/13/2017. FINDINGS: EKG electrodes are seen. The lungs are clear and expanded. There is no demonstrated pleural abnormality. Normal size heart. Normal mediastinum and lizette. Normal visualized pulmonary arteries. Normal visualized aortic arch and descending thoracic aorta. There are diffuse degenerative changes of the visualized thoracic spine. There is degenerative osteoarthritis of the bilateral shoulders. There is no demonstrated abnormality of the visualized soft tissue structures of the upper abdomen. RAD/Chest 1 View (Portable) IMPRESSION: No acute abnormality is seen. Electronically Signed: Kenn Ramírez, at 9:16 EDT , Service support ,
[2020-02-12 09:09] LABS: Anion Gap 6 (5-15); BUN 35 mg/dL (7-18); BUN/Creat Ratio 25.7 RATIO (10-20); Calcium,Total 9.7 mg/dL (8.5-10.1); Chloride 102 mmol/L (98-107); Creatinine, Serum 1.36 mg/dL (0.55-1.02); EST Glomerular Filtration Rate 42 mL/min (>60); Est Glom Filt Rate - Afr Amer 50 mL/min (>60); Estimated Creatinine Clearance 39.12 ml/min; Glucose 108 mg/dL (74-106); Potassium 4.2 mmol/L (3.5-5.1); Sodium Level 136 mmol/L (136-145)
[2020-02-12] MEDS: Ketorolac 15 MG/ML Vial IV (09:43)
[2020-02-12 10:04] VITALS: BP 136/88; PULSE 72; RESP 15; O2SAT 97
== END 2020-02-12 10:05 | disposition home or self-care (01) ==
PROVIDERS: Emergency Provider Emergency Medicine; PCP Internal Medicine
DX: R00.2 Palpitations (principal); M54.9 Dorsalgia, unspecified; I10 Essential (primary) hypertension; K21.9 Gastro-esophageal reflux disease without esophagitis; H91.90 Unspecified hearing loss, unspecified ear; Z79.899 Other long term (current) drug therapy; K44.9 Diaphragmatic hernia without obstruction or gangrene; Z87.891 Personal history of nicotine dependence
CPT/HCPCS: 71045; 80048; 84484; 85025; 93005; 94760; 96374; 99281; 99285; A4216

== ENCOUNTER → 2020-06-08 16:07 | Outpatient (CLI) | payer OTHER, SELFPAY ==
--- NOTE | 2020-06-08 16:19 | CT_ITS ---
STUDY: CT MAXILLOFACIAL SINUSES REASON FOR EXAM: Female, 64 years old. Sinusitis. Sinus pain. Right ear hearing impairment. RADIATION DOSAGE (If Supplied By Facility): CTDIvol = ( 33.45 ) mGy, DLP = ( 726.19 ) mGycm TECHNIQUE: The patient was scanned in a multi detector CT scanner. High resolution axial imaging was performed without the administration of intravenous contrast material. Sagittal and coronal images were reconstructed. Individualized dose optimization techniques were used for this CT. COMPARISON: None. FINDINGS: FRONTAL SINUSES: Normal aeration, without mucosal inflammatory disease. ETHMOIDAL SINUSES: Minimal mucoperiosteal reaction in the anterior right ethmoid air cells. MAXILLARY SINUSES: Minimal mucoperiosteal reaction inferiorly in both maxillary sinuses. SPHENOIDAL SINUSES: Normal aeration, without mucosal inflammatory disease. There is patency of the bilateral maxillary infundibuli with normal uncinate processes, ethmoid bullae, and hiatus semilunaris. There is a sierra bullosa of the right middle turbinate. Normal bilateral inferior turbinates. Normal midline nasal septum. There is patency of the bilateral nasal airways. The visualized osseous structures are normal. The visualized bilateral orbital contents are normal. CT/Sinus/Facial Bone IMPRESSION: Minimal bilateral maxillary and right ethmoid sinusitis. Electronically Signed: Philip Vincent DO at 22:47 EST Tel [phone], Service support ,
== END ==
PROVIDERS: PCP Internal Medicine; Referring Provider Otolaryngology; Visit Provider Otolaryngology
DX: J32.8 Other chronic sinusitis (principal)
CPT/HCPCS: 70486

== ENCOUNTER → 2020-07-10 12:26 | Outpatient (CLI) | payer OTHER, SELFPAY ==
--- NOTE | 2020-07-10 12:27 | EKG12_ITS ---
Test Reason : RE OP Blood Pressure : / mmHG Vent. Rate : 058 BPM Atrial Rate : 058 BPM P-R Int : 170 ms QRS Dur : 094 ms QT Int : 414 ms P-R-T Axes : 041 007 041 degrees QTc Int : 406 ms Sinus bradycardia Otherwise normal ECG Confirmed by ANA PAULA GAFFNEY, MILO ([id number]), assistant film editor VICKY MARTINEZ ([id number]) on 07/13/2020 9:29:50 AM Referred By: Manjit Redman Confirmed By:JESSICA GOSS MD
[2020-07-10 13:29] LABS: Hematocrit 41.3 % (37-47); Hemoglobin 13.2 g/dL (12.0-15.0); Mean Corpuscular Hgb 30.4 pg (27.0-32.0); Mean Corpuscular Volume 95.2 fL (81-99); Mean Platelet Vol. 11.3 fl (6.2-12.0); Platelet Count 341 K/mm3 (150-450); RBC Distribution Width SD 42.5 fl (35.1-43.9); Red Blood Count 4.34 M/mm3 (4.2-5.4); White Blood Count 6.9 K/mm3 (4.4-11.0)
[2020-07-10 13:39] LABS: Anion Gap 6 (5-15); BUN 24 mg/dL (7-18); BUN/Creat Ratio 25.5 RATIO (10-20); Chloride 105 mmol/L (98-107); Creatinine, Serum 0.94 mg/dL (0.55-1.02); EST Glomerular Filtration Rate 64 mL/min (>60); Est Glom Filt Rate - Afr Amer 77 mL/min (>60); Glucose 89 mg/dL (74-106); Potassium 4.3 mmol/L (3.5-5.1); Sodium Level 139 mmol/L (136-145)
== END ==
PROVIDERS: PCP Internal Medicine; Referring Provider Otolaryngology; Visit Provider Otolaryngology
DX: Z11.59 Encounter for screening for other viral diseases (principal)
CPT/HCPCS: 36415; 80048; 85027; 87635; 93005; C9803; U0002

== ENCOUNTER → 2020-09-10 16:52 | Outpatient (CLI) | payer OTHER, SELFPAY | PROVIDERS: PCP Internal Medicine; Visit Provider Otolaryngology | DX: H92.11 Otorrhea, right ear (principal) | CPT/HCPCS: 87070; 87075; 87077; 87186; 87205 ==

== ENCOUNTER → 2020-10-09 15:09 | Outpatient (CLI) | payer MEDICARE, SELFPAY | PROVIDERS: PCP Internal Medicine; Visit Provider Otolaryngology | DX: H92.10 Otorrhea, unspecified ear (principal) | CPT/HCPCS: 87070; 87075; 87077; 87186; 87205 ==

== ENCOUNTER 2020-10-24 09:58 | Emergency (ER) | payer MEDICARE, SELFPAY ==
[2020-10-24 09:59] VITALS: BP 167/94; PULSE 102; RESP 16; TEMP 36.4; O2SAT 98; BMI 21.6
--- NOTE | 2020-10-24 10:12 | EKG12_ITS ---
Test Reason : CHEST PAIN Blood Pressure : / mmHG Vent. Rate : 077 BPM Atrial Rate : 077 BPM P-R Int : 170 ms QRS Dur : 092 ms QT Int : 362 ms P-R-T Axes : 052 012 055 degrees QTc Int : 409 ms Sinus rhythm with occasional Premature ventricular complexes Otherwise normal ECG Confirmed by SIN GAFFNEY, JEREMY ([id number]), videotape editor VICKY MARTINEZ ([id number]) on 10/27/2020 8:47:54 AM Referred By: JESSE Confirmed By:JEREMY VOGT MD
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
[2020-10-24 11:02] VITALS: RESP 17
[2020-10-24 11:15] LABS: Absolute Lymphocyte Count 1.97 X10^3/uL (0.83-4.51); Absolute Neutrophil Count 3.9 X10^3/uL (2.0-7.7); Basophil# 0.03 X10^3/uL; Basophil% 0.5 % (0-1); Eosinophil# 0.17 X10^3/uL; Eosinophils% 2.6 % (0-5); Hematocrit 40.5 % (37-47); Hemoglobin 13.1 g/dL (12.0-15.0); Lymphocyte # 1.97 X10^3/ul (0.83-4.51); Lymphocyte % 30.1 % (19-41); Mean Corp Hgb Conc 32.3 g/dL (32-36); Mean Corpuscular Hgb 30.3 pg (27.0-32.0); Mean Corpuscular Volume 93.8 fL (81-99); Mean Platelet Vol. 10.7 fl (6.2-12.0); Monocyte# 0.47 X10^3/uL; Monocyte% 7.2 % (0-10); NRBC Flagged by Analyzer 0 % (0-5); Neutrophil # 3.87 X10^3/uL (2.7-7.7); Neutrophil % 59.1 % (47-70); Platelet Count 320 K/mm3 (150-450); RBC Distribution Width CV 12.1 % (11.6-14.6); RBC Distribution Width SD 42.1 fl (35.1-43.9); Red Blood Count 4.32 M/mm3 (4.2-5.4); White Blood Count 6.5 K/mm3 (4.4-11.0)
[2020-10-24] MEDS: HYDROcodone Bitartrate/Apap 5/325 Tablet PO (11:34)
[2020-10-24 11:39] LABS: ALB/GLOB Ratio 0.9 RATIO (0.9-2.4); AST(SGOT) 16 U/L (15-37); Alanine Aminotransfer ALT/SGPT 28 U/L (13-56); Albumin, Serum 3.7 g/dL (3.2-5.0); Alkaline Phosphatase 142 U/L (45-117); Anion Gap 6 (5-15); BUN 22 mg/dL (7-18); BUN/Creat Ratio 19.1 RATIO (10-20); Calcium,Total 8.8 mg/dL (8.5-10.1); Chloride 105 mmol/L (98-107); Creatinine, Serum 1.15 mg/dL (0.55-1.02); EST Glomerular Filtration Rate 50 mL/min (>60); Est Glom Filt Rate - Afr Amer 61 mL/min (>60); Estimated Creatinine Clearance 54.13 ml/min; Glucose 85 mg/dL (74-106); Potassium 4.1 mmol/L (3.5-5.1); Protein, Total 7.7 g/dL (6.4-8.2); Sodium Level 140 mmol/L (136-145); Troponin-I HS 3.3 pg/mL (3.0-53.7)
[2020-10-24 13:54] VITALS: BP 131/76; PULSE 71; RESP 20; O2SAT 98
--- NOTE | 2020-10-24 13:56 | ED.RN ---
THIS NURSE REVIEWED D/C INSTRUCTIONS WITH PT AND . PT VERBALIZED UNDERSTANDING OF INSTRUCTIONS. IV D/C. IV CATHETER INTACT. PT TOLERATED WELL. PT DENIES FURTHER NEEDS OR QUESTIONS AT THIS TIME. P
== END 2020-10-24 13:57 | disposition home or self-care (01) ==
PROVIDERS: Emergency Provider Emergency Medicine; PCP Internal Medicine
DX: R07.89 Other chest pain (principal); Y92.410 Unspecified street and highway as the place of occurrence of the external cause; V43.62XA Car passenger injured in collision with other type car in traffic accident, initial encounter; Y93.89 Activity, other specified; I10 Essential (primary) hypertension; K21.9 Gastro-esophageal reflux disease without esophagitis; K44.9 Diaphragmatic hernia without obstruction or gangrene; R91.8 Other nonspecific abnormal finding of lung field
CPT/HCPCS: 71260; 80053; 84484; 85025; 93005; 99284; Q9967; A4216